=== PATIENT | female | born 1955 | race Caucasian/White ===

== ENCOUNTER → 2020-01-03 08:45 | Outpatient (CLI) | payer BC, SELFPAY ==
--- NOTE | ~2020-01-03 | MR_ITS ---
EXAMINATION: MR shoulder LT wo con DATE: 01/03/2020 09:42 INDICATION: Left shoulder pain TECHNIQUE: Magnetic resonance imaging (MRI) of the left shoulder was performed without intravenous co ntrast. Sequences included axial PD-weighted FS FSE, coronal oblique PD-weighted FS FSE, coronal obli que T2-weighted FS FSE, sagittal PD-weighted FS FSE, and sagittal T1-weighted SE. COMPARISON: None. FINDINGS: Coracoacromial arch: The acromion undersurface is curved in morphology (type II). The acromion is thin suggesting prior ac romioplasty. The coracoacromial ligament is normal. Mild acromioclavicular osteoarthritis. Rotator cuff: Mild supraspinatus tendinopathy without discrete tear. The infraspinatus and teres minor tendons are normal. Mild subscapularis tendinopathy with intrasubstance delaminating split tear occurring between the portion of the tendon attached to the lesser tuberosity and the portion contiguous with the hammond sverse humeral ligament which remains attached to the lateral rim of the intertubercular groove. The long head of the biceps tendon is subluxed across the medial rim of the intertubercular groove and pa rtially into the subscapularis tear defect. Normal rotator cuff muscle bulk and signal. Biceps tendon, glenoid labrum and glenohumeral cartilage: Mild tendinopathy and longitudinal split tearing of the subluxed long head biceps tendon. There is am orphous increased signal of the superior glenoid labrum from approximately 1:30 position anteriorly e xtending to the 9:30 position posteriorly. There appear to be suture anchor tracks along the superior glenoid consistent with reported history of earlier SLAP tear repair. The increased signal in the la sadfa could be related to either prior repaired tear or subsequent degeneration. No well-defined linea r labral tear or displaced labral tissue appreciated. Partial-thickness cartilage loss with relativel y smooth appearing chondral surface at the superior to posterior aspect of the humeral head as well a s along the cephalad half of the glenoid. Fluid: Physiologic amount of fluid in the glenohumeral joint with mild synovitis at the axillary and deep lemus bscapular recesses. Small amount fluid in the long head biceps tendon sheath consistent with mild ten osynovitis. 4 x 4 x 2 mm loose osteochondral body lodged along the medial margin of the long head bic eps tendon within the subscapularis tendon tear defect. No other loose osteochondral bodies. No abnor mal fluid signal in the subacromial/subdeltoid bursa to suggest bursitis. Bones: Bone alignment is normal. No fracture or pathologic marrow replacing process. Mild cystic change at t he posterior aspect of the greater tuberosity. Minimal hypertrophic change along the superior facet a nd moderate hypertrophic change along the lesser tuberosity. IMPRESSION: 1. Mild subscapularis tendinopathy with medially subluxed long head of the biceps tendon as well as a small loose osteochondral body positioned within a longitudinal split tear of the subscapularis tend on occurring between the portion of the tendon attached to the lesser tuberosity and a portion contig uous with the transverse humeral ligament. 2. Irregular appearance to the superior to posterior superior glenoid labrum consistent with either d egenerative tearing of the labrum or more likely previously repaired tear. Correlate with surgical hi story and any prior outside imaging. 3. Mild bicipital tenosynovitis with mild tendinopathy and longitudinal split tearing. 4. Mild supraspinatus tendinopathy without discrete tear. 5. Mild glenohumeral and acromioclavicular osteoarthritis. Reviewed, dictated and finalized at location B.
== END ==
PROVIDERS: PCP Family Medicine; Visit Provider Family Medicine
DX: M19.012 Primary osteoarthritis, left shoulder (principal); M75.22 Bicipital tendinitis, left shoulder
CPT/HCPCS: 73221